=== PATIENT | female | born 1985 | race Caucasian/White ===

== ENCOUNTER 2017-11-05 10:07 | Emergency (ER) | payer MEDICAID, OTHER ==
[~2017-11-05] VITALS: Ht 160 cm; Wt 83.0 kg
[2017-11-05] MEDS ORDERED: DIPHENHYDRAMINE 25MG CAPSULE PO ONE (14:00)
[2017-11-05] MEDS ORDERED: PREDNISONE 20MG TABLET PO ONE (14:00)
[2017-11-05] MEDS ORDERED: IBUPROFEN 400MG TABLET PO ONE (14:00)
[2017-11-05 14:09] VITALS: BP 117/79
== END 2017-11-05 14:30 | disposition home or self-care (01) ==
LOC: ER 10:11
DX: L53.8 Other specified erythematous conditions (principal); L03.116 Cellulitis of left lower limb; L73.9 Follicular disorder, unspecified
CPT/HCPCS: 81025; 99284; J7512; Q0163

== ENCOUNTER 2018-04-08 09:02 | Emergency (ER) | payer SELFPAY ==
[~2018-04-08] VITALS: Ht 152.4 cm; Wt 84.0 kg
[2018-04-08 09:57] LABS: CLARITY URINE CLEAR (CLEAR); COLOR URINE YELLOW (YELLOW); KETONES URINE TRACE (NEGATIVE); LEUKOCYTE ESTERASE URINE NEGATIVE (NEGATIVE); NITRITE URINE NEGATIVE (NEGATIVE); OCCULT BLOOD URINE NEGATIVE (NEGATIVE); PH URINE 5.5 (4.5-8.0); PROTEIN URINE NEGATIVE (NEGATIVE); SPECIFIC GRAVITY URINE 1.022 (1.005-1.030)
[2018-04-08] MEDS ORDERED: SODIUM CHLORIDE 0.9% 1,000 ML IV ONE (11:36)
[2018-04-08] MEDS ORDERED: ONDANSETRON 4MG ODT PO ONE (11:45)
[2018-04-08 12:39] LABS: HEMATOCRIT. 35.9 % (36.0-48.0); HEMOGLOBIN. 12.1 g/dL (12.0-16.0); MEAN CORPUSCULAR HEMOGLOBIN 28.6 pg (28.0-32.0); MEAN CORPUSCULAR VOLUME 84.5 fL (81.0-99.0); MEAN PLATELET VOLUME 9.6 fl (7.4-10.4); PLATELET 191 x1000/uL (130-400); RED BLOOD CELL COUNT 4.24 mill/uL (4.2-5.4); RED CELL DISTRIBUTION WIDTH 13.5 % (11.6-14.6)
[2018-04-08 12:46] LABS: CHLORIDE 110 mEq/L (98-107)
[2018-04-08 12:49] LABS: INR 1.2; PARTIAL THROMBOPLASTIN TIME 27.9 sec (23.4-31.0); PROTHROMBIN TIME 12.3 sec (9.4-11.6)
[2018-04-08 13:41] LABS: PLATELET ESTIMATE NORMAL
[2018-04-08 14:15] LABS: *COCAINE SCREEN URINE NEGATIVE (NEGATIVE); OPIATES URINE SCREEN NEGATIVE (NEGATIVE)
[2018-04-08 14:16] LABS: *AMPHETAMINES SCREEN URINE NEGATIVE (NEGATIVE); *BARBITURATES SCREEN URINE NEGATIVE (NEGATIVE); *BENZODIAZEPINES SCREEN URINE NEGATIVE (NEGATIVE); CANNABINOID URINE SCREEN NEGATIVE (NEGATIVE); METHADONE URINE SCREEN NEGATIVE (NEGATIVE); PHENCYCLIDINE URINE SCREEN NEGATIVE (NEGATIVE)
[2018-04-08] MEDS ORDERED: DEXAMETHASONE 10 MG/ML VIAL IV ONE (15:30)
[2018-04-08] MEDS ORDERED: MECLIZINE 25MG TABLET PO ONE (15:30)
[2018-04-08 17:05] VITALS: BP 107/71
== END 2018-04-08 17:17 | disposition home or self-care (01) ==
LOC: ER 09:02
DX: R42 Dizziness and giddiness (principal); R11.0 Nausea; R10.13 Epigastric pain; E87.8 Other disorders of electrolyte and fluid balance, not elsewhere classified
CPT/HCPCS: 36415; 80053; 80305; 81003; 81025; 83690; 85025; 85610; 85730; 87086; 96361; 96374; 99284; J1100; J7030; Q0162; Z7610; J8597